=== PATIENT | male | born 1990 | race Caucasian/White ===

== ENCOUNTER 2016-07-10 22:54 | Emergency (ER) | payer OTHER ==
[~2016-07-10] VITALS: Ht 175.3 cm; Wt 68.2 kg
[2016-07-10 22:59] VITALS: Ht 175.3 cm; Wt 68.2 kg
[2016-07-11] MEDS ORDERED: CEPH-443 PO (00:22)
[2016-07-11] MEDS ORDERED: MUPI22OI2 TOP (00:22)
--- NOTE | 2016-07-11 00:27 | ERD ---
ER Documentation Chief Complaint Date/Time DATE: 07/11/16 TIME: 00:23 Chief Complaint ALLERGIC REACTION POSSIBLY TO ACETAMINOPHEN. GEN RASH BODY NO SOB HPI This patient is a 25-year-old who presents with a rash on his bilateral hips and left lateral chest wall. He has no pain or itchiness. No fever. He did go swimming earlier last week and then on Saturday this began. No difficulty breathing. No new soaps or detergents. No lip or tongue swelling. ROS All systems reviewed and are negative except as per history of present illness. Medications Home Meds Active Scripts Cephalexin* (Keflex*) 500 Mg Capsule, 500 MG PO QID for 7 Days, CAP Prov:LUIZ RUIZ PA-C 07/11/16 Mupirocin* (Bactroban*) 2% -22 Gram Oint...g., 1 APPLIC TOP BID for 7 Days, EA Prov:LUIZ RUIZ PA-C 07/11/16 Allergies Allergies: Coded Allergies: acetaminophen (Verified Allergy, Intermediate, RASH, 07/10/16) PMhx/Soc Medical and Surgical Hx: pt denies Medical Hx, pt denies Surgical Hx History of Surgery: No (DENIES MEDICAL AND SURGICAL HX.) Anesthesia Reaction: No Hx Neurological Disorder: No Hx Respiratory Disorders: No Hx Cardiac Disorders: No Hx Psychiatric Problems: No Hx Miscellaneous Medical Probl: No Hx Alcohol Use: Yes (RARELY) Hx Substance Use: No Hx Tobacco Use: No Smoking Status: Never smoker FmHx Family History: No diabetes Physical Exam Vitals Vital Signs Date Time Temp Pulse Resp B/P Pulse Ox O2 Delivery O2 Flow Rate FiO2 07/10/16 22:59 97.7 75 18 127/62 95 Physical Exam General: well developed, well nourished, alert, nontoxic, no distress Head: normocephalic, atraumatic Eyes: PERRL, normal conjunctiva Neck: Supple, nontender, no lymphadenopathy, no midline tenderness Oropharynx: no tonsilar erythema or edema, uvula midline, no exudates, no kissing tonsils, no drooling Respiratory: Clear to auscaultation bilaterally, speaks in full sentences, no use of accesory muscles or labored breathing, no rales, ronchi, or wheezing Cardiovascular: RRR, No murmurs Back: no midline tenderness, no step offs or bony abnormalities, sensation to light touch in tact Extremities: moving all extremities normally, normal gait, no edema Skin: Patient has multiple small macular papular pimple-like lesions on the bilateral hips and lateral left chest wall. Blanchable, no surrounding erythema , no warmth, nontender Procedures/MDM This patient has a rash. It is most consistent with folliculitis. His vitals are normal he is well-appearing. They do not itch and he has no pain. No fever. He was given prescription for Bactroban cream as well as Keflex. Recommended outpatient dermatology follow-up. Recommended this patient follow up with her primary care doctor within 48 hours or return to the emergency room for any worsening of symptoms. However this time I do believe there is suitable for outpatient management. I answered all their questions and they agreed with the plan and were discharged home. Departure Diagnosis: Primary Impression: Rash Condition: Stable Patient Instructions: Self-Care for Skin Rashes, Folliculitis Additional Instructions: Call your primary care doctor TOMORROW for an appointment during the next 1-2 days.See the doctor sooner or return here if your condition worsens before your appointment time. LUIZ RUIZ PA-C July 11, 2016 00:27
== END 2016-07-11 00:35 | disposition home or self-care (01) ==
LOC: FTE 22:54
DX: R21 Rash and other nonspecific skin eruption (principal)
CPT/HCPCS: 99284